=== PATIENT | male | born 1965 | race Caucasian/White ===

== ENCOUNTER 2018-08-17 03:47 | Emergency (ER) | payer BC ==
[2018-08-17] MEDS ORDERED: Tetracaine 0.5% OPHTH SOLN/PF 4 ML BOT ONE (04:30)
== END 2018-08-17 05:13 | disposition home or self-care (01) ==
LOC: MADERS 03:47
DX: T15.91XA Foreign body on external eye, part unspecified, right eye, initial encounter (principal); K21.9 Gastro-esophageal reflux disease without esophagitis; F41.0 Panic disorder [episodic paroxysmal anxiety]; W45.8XXA Other foreign body or object entering through skin, initial encounter
CPT/HCPCS: 65220